=== PATIENT | female | born 1970 | race Caucasian/White ===

== ENCOUNTER 2017-01-15 10:52 | Emergency (ER) | payer OTHER ==
[2017-01-15 11:03] VITALS: RESP 16; TEMP 97.7
[2017-01-15] MEDS ORDERED: oxyCODONE IR 5 MG TAB PO ONE (12:16)
[2017-01-15 12:33] VITALS: BP 124/75; PULSE 65; O2SAT 100
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
== END 2017-01-15 14:13 | disposition home or self-care (01) ==
LOC: EDBD → EDUNIT#
DX: S63.502A Unspecified sprain of left wrist, initial encounter (principal); S16.1XXA Strain of muscle, fascia and tendon at neck level, initial encounter; Z87.891 Personal history of nicotine dependence; V49.49XA Driver injured in collision with other motor vehicles in traffic accident, initial encounter; Y92.410 Unspecified street and highway as the place of occurrence of the external cause; Y99.8 Other external cause status; Y93.89 Activity, other specified
CPT/HCPCS: L3807